=== PATIENT | male | born 1960 | race Two or more races ===

== ENCOUNTER 2024-07-19 10:13 | Emergency (ER) | payer MEDICAID, SELFPAY ==
[2024-07-19 10:15] VITALS: BMI 27.4
[2024-07-19 10:51] VITALS: BP 163/89; PULSE 98; RESP 19; TEMP 37.1; O2SAT 98
--- NOTE | 2024-07-19 10:57 | PD.EDRME ---
Rapid Medical Screening Exam RME Arrival date/time: 07/19/24 10:13 63-year-old male presents to the emergency department with complaints of abdominal pain recent abdominal surgery has colostomy bag. I have greeted and performed a focused initial assessment of this patient. Initial appropriate labs ordered at this time. A comprehensive ED assessment and evaluation of the patient and analysis of all test and completion of medical decision making process will be conducted by additional ED provider. Chief Complaint: Abdominal Pain Time Seen by Provider: 07/19/24 10:35 Vital signs: Vital Signs Temperature 98.7 F 07/19/24 10:51 Pulse Rate 98 07/19/24 10:51 Respiratory Rate 19 07/19/24 10:51 Blood Pressure 163/89 H 07/19/24 10:51 Pulse Oximetry (%) 98 07/19/24 10:51 Oxygen Delivery Method Room Air 07/19/24 10:51
--- NOTE | 2024-07-19 11:39 | PD.EDABDPN ---
ED Abdominal Pain RME/HPI General Chief Complaint: Abdominal Pain Stated complaint: ABD PAIN SINCE YESTERDAY, HX OF ABD SX Time seen by provider: 07/19/24 10:35 Arrival date/time: 07/19/24 10:13 This is a 63-year-old male that comes in with complaints of abdominal pain. Patient was seen here 04/17/24 for a nonbleeding external hemorrhoid. patient's patient states that he was then referred to a surgeon. Patient is a very poor historian. Patient states that he was at [facility] and was there for almost a month per patient. Patient has a colostomy and continues to have altagracia in place. Per patient they have been there for over 2 months. Patient also has a PICC line in place. Per patient he supposed to be on chemotherapy. Received some paperwork from [facility] it appears that patient had a large bowel obstruction and had rectal bleeding. Patient had a exploratory ex lap with a liver biopsy. Patient was diagnosed with colon cancer. RME / HPI RME / HPI narrative: 07/19/24 10:13 63-year-old male presents to the emergency department with complaints of abdominal pain recent abdominal surgery has colostomy bag. I have greeted and performed a focused initial assessment of this patient. Initial appropriate labs ordered at this time. A comprehensive ED assessment and evaluation of the patient and analysis of all test and completion of medical decision making process will be conducted by additional ED provider. Related Data Allergies Allergy/AdvReac Type Severity Reaction Status Date / Time No Known Allergies Allergy Verified 07/19/24 10:16 Review of Systems Review of Systems Systems Reviewed: All systems reviewed, normal except as documented Past Medical History Social History SMOKING STATUS: Current every day smoker ED Exam General General appearance: Present alert and in no apparent distress Head Head exam: Present atraumatic Eye Eye exam: Present normal appearance, PERRL and EOMI ENT ENT exam: Present normal exam, normal oropharynx and mucous membranes moist Neck Neck exam: Present normal inspection, full ROM and trachea midline Chest Chest inspection: Present normal inspection and symmetric chest wall rise Respiratory Respiratory exam: Present normal lung sounds bilaterally Cardiovascular Cardiovascular exam: Present regular rate, normal rhythm and normal heart sounds Abdominal Exam Abdominal exam: Present soft and other (colostomy on the right side of abdomen, midline altagracia in place in abdomen ) Extremities Exam Extremities exam: Present normal inspection and full ROM Back Exam Back exam: Present normal inspection and full ROM Neurological Exam Neurological exam: Present alert, oriented X3 and CN II-XII intact Psychiatric Psychiatric exam: Present normal affect and normal mood Skin Skin exam: Present warm, dry, intact and normal color Course Quality Measures none Orders Category Date Time Status CT Screening NOW Care 07/19/24 13:[address] abdomen pelvis w con Stat Exams 07/19/24 13:25 Completed Blood Culture (Lab) Stat Lab 07/19/24 11:50 Completed CBC Stat Lab 07/19/24 11:50 Completed Comprehensive Metabolic Panel Stat Lab 07/19/24 11:50 Completed Drug Screen,Urine Stat Lab 07/19/24 12:40 Completed Lactate (Lactic Acid) Stat Lab 07/19/24 12:35 Completed Lipase Stat Lab 07/19/24 11:50 Completed Urinalysis, C/S if Indicated Stat Lab 07/19/24 12:40 Completed Urine Culture Stat Lab 07/19/24 12:40 Completed HYDROcodone*/APAP 5/325 [[place] 5/325] Med 07/19/24 16:48 Discontinued 1 tab PO X1 ONE cefTRIAXone [Rocephin] 1,000 mg Med 07/19/24 16:49 Discontinued Lidocaine 1% 20 ml [Xylocaine 1% 20 ML] 2.1 ml IM X1 Vital Signs Vital signs: Vital Signs Temperature 98.7 F 07/19/24 10:51 Pulse Rate 98 07/19/24 10:51 Respiratory Rate 19 07/19/24 10:51 Blood Pressure 163/89 H 07/19/24 10:51 Pulse Oximetry (%) 98 07/19/24 10:51 Oxygen Delivery Method Room Air 07/19/24 10:51 Abdominal Pain MDM MDM Narrative MDM Narrative:: CT abdomen and pelvis: Findings: There are numerous liver lesions Gallbladder wall is thickened with tiny gallstones Spleen not enlarged No pancreatic or adrenal mass Periaortic pericaval lymphadenopathy No hydronephrosis Common iliac and external iliac lymphadenopathy Large rectal mass which is extending anteriorly invading the prostate Thickened gallbladder wall Prominent osteopenia Bilateral expansile rib lesions Bone destruction involving the left first and second sacral segments for instance axial image 236 Impression: Numerous liver lesions Recommend hepatobiliary sonography to exclude acute cholecystitis Extensive abdominal and pelvic lymphadenopathy Large rectal presumed tumor mass Osseous metastatic disease Labs reviewed. WBC 13.9, lfts elevated. Pt had wbc in urine. Pt treated with rocephin. Altagracia we removed. Spoke to patient at length. Patient is to follow up with his primary provider tomorrow. Come back to ED if symptoms change or worsen. Patient data External records reviewed:: [facility] previous records Clinical information provided by:: patient Social determinants that could affect healthcare access:: housing Patient has the following chronic illnesses:: likely colon cancer How is presenting disease/condition affected by chronic disease/condition?: exacerbated by Evaluation data The following diagnostics were reviewed and interpreted by me:: lab results and radiology exam(s) Lab and/or radiology exams considered but not ordered:: none Interpretation Summary: see note Medications / Prescriptions Medications or Prescriptions considered but not ordered:: none Medication administrations:: Medication Administration History Discontinued Medications Hydrocodone Bitart/Acetaminophen (Hydrocodone/[place] 5/325 Tablet) 1 tab PO X1 ONE Stop: 07/19/24 16:49 Last Admin: 07/19/24 17:13 Dose: 1 tab Documented By: CARMEL Ceftriaxone Sodium 1,000 mg/ (Lidocaine HCl 2.1 ml) 0 mg IM X1 ONE Stop: 07/19/24 16:50 Last Admin: 07/19/24 17:14 Dose: 1,000 mg Documented By: CARMEL see mar Consultations Consultation(s) initiated? (list below): No Diagnosis Differential diagnosis abdominal pain: abdominal pain, acute appendicitis, calculus of kidney, pancreatitis and small bowel obstruction Most likely diagnosis given after review of the tests above:: colon cancer with mets Admission Indicated Admission indicated?: not indicated Admission Request Was there a request for admission?: No Disposition Plan Disposition Plan: Discharge Discharge Attestation Discharge Attestation: The patient and all family members were given an opportunity to ask questions and understood the discharge instructions. Discharge instructions specifically effects, indications for sooner follow up or return to the emergency department, and the expected course of current diagnosis. Patient condition: Stable Discharge Plan Plan Patient Disposition: HOME (Self Care) Patient condition on transfer: Stable Prescriptions/Referrals Referrals: Ifeanyi Lucia MD [Primary Care Provider] - In 1 week Problem List Clinical Impression: Colon cancer, Acute UTI, Metastases to the liver Patient/Caregiver Discharge Instructions Discharge Activity: activity as tolerated Education Materials: Urinary Tract Infections in Men, Colorectal Cancer Additional Instructions: [facility] and [facility] Take medications as prescribed. Come back to the emergency room if symptoms change or worsen. Print Language: Kiswahili Stand Alone Forms: Gabriela Award Info., Patient Portal Info Letter PA/RN CARDIOVASCULAR Supervising Physician PA/RN CARDIOVASCULAR Supervising Physician: ria
[2024-07-19 12:40] LABS: Lactate (Lactic Acid) 1.9 mMol/L (0.4-2.0)
[2024-07-19 12:43] LABS: Basophils # (Auto) 0.1 Thou/mm3 (0.0-0.2); Basophils % (Auto) 0 % (0-2.5); Eosinophils # (Auto) 0.1 Thou/mm3 (0.0-0.5); Eosinophils % (Auto) 1 % (0-10); Hematocrit 35.7 % (41.0-53.0); Hemoglobin 11.3 g/dL (13.5-16.0); Immature Granulocytes % (Auto) 1 % (0-0); Immature Granulocytes Auto 0.09 Thou/mm3 (0.00-0.00); Lymphocytes # (Auto) 1.8 Thou/mm3 (1.0-4.8); Lymphocytes % (Auto) 13 % (10-50); Mean Corpuscular HGB Conc 31.7 g/dl (31.0-37.0); Mean Corpuscular Hemoglobin 28.3 pg (25.0-35.0); Mean Corpuscular Volume 90 fL (80-100); Monocytes # (Auto) 1.3 Thou/mm3 (0.0-0.8); Monocytes % (Auto) 9 % (0-12); Neutrophils # (Auto) 10.5 Thou/mm3 (1.8-7.7); Neutrophils % (Auto) 76 % (37-80); Nucleated Red Blood Cell % 0 /100 WBC (0); Platelet Count 381 Thou/mm3 (140-440); RDW Standard Deviation 46.3 fL (35.1-43.9); Red Blood Count 3.99 Miln/mm3 (4.50-5.90); White Blood Count 13.9 Thou/mm3 (3.8-10.6)
[2024-07-19 13:10] LABS: Alanine Aminotransferase 81 U/L (10-49); Albumin, Serum 4.3 gm/dL (3.4-4.8); Albumin/Globulin Ratio 1.5 (1.2-2.2); Alkaline Phosphatase 980 U/L (46-116); Anion Gap 10 (7-16); Aspartate Amino Transferase 59 U/L (0-34); BUN/Creatinine Ratio 18 Ratio (12-20); Bilirubin,Total 0.4 mg/dL (0.3-1.2); Blood Urea Nitrogen 14 mg/dL (9-23); Calcium 9.5 mg/dL (8.3-10.6); Calcium (Corrected) 9.5 mg/dL (8.5-10.1); Chloride 102 mMol/L (98-107); Creatinine (Component) 0.8 mg/dL (0.6-1.3); Estimated Creatinine Clearance 93.6 mL/min (>60); Globulin 2.8 gm/dL (2.3-3.5); Glucose 112 mg/dL (74-106); Lipase 33 U/L (12-53); Osmolality,Calculated 277 (275-295); Potassium 3.9 mMol/L (3.4-5.1); Sodium 138 mMol/L (136-145); Total Protein 7.1 gm/dL (5.7-8.2); eGFR > 60 See Note
--- NOTE | 2024-07-19 13:25 | XR_ITS ---
Examination: CT abdomen with intravenous contrast CT pelvis with intravenous contrast 2-D coronal reconstructions 2-D sagittal reconstructions Date and time of exam:July 19, 2024 1500 hrs. Indications: Generalized abdominal pain today multiple abdominal surgeries. CTDI: vol (mGy) 13.9 DLP: (mGycm) 587 Technique: Multiple axial sections of the abdomen and pelvis have been obtained. 64 slice high-resolution scanner used. 3 mm axial sections have been obtained, post intravenous injection 60 cc [id number] 2-D sagittal coronal reconstructions Nodose protocols, automated exposure control, adjustment MA KV according to patient size Findings: There are numerous liver lesions Gallbladder wall is thickened with tiny gallstones Spleen not enlarged No pancreatic or adrenal mass Periaortic pericaval lymphadenopathy No hydronephrosis Common iliac and external iliac lymphadenopathy Large rectal mass which is extending anteriorly invading the prostate Thickened gallbladder wall Prominent osteopenia Bilateral expansile rib lesions Bone destruction involving the left first and second sacral segments for instance axial image 236 Impression: Numerous liver lesions Recommend hepatobiliary sonography to exclude acute cholecystitis Extensive abdominal and pelvic lymphadenopathy Large rectal presumed tumor mass Osseous metastatic disease
[2024-07-19 13:38] LABS: Collection Type, Urine Pedi-Bag; RBC,Urine 0 /hpf (0-3)
[2024-07-19 13:57] VITALS: BP 137/80; PULSE 88; RESP 16; O2SAT 97
[2024-07-19 14:09] LABS: Amorphous Crystals,Urine Present (Absent); Bacteria,Urine 3+; Bilirubin,Urine Negative (Negative); Blood,Urine Negative (Negative); Clarity,Urine Turbid (Clear/Hazy); Color,Urine Yellow (Lt Yel-Yel); Culture Indicated,Urine Yes; Glucose, Urine Negative (Negative); Ketones,Urine Negative (Negative); Leukocyte Esterase,Urine Positive (Negative); Nitrite,Urine Negative (Negative); Protein,Urine 1+ (Neg - Trace); Specific Gravity,Urine 1.027 (1.001-1.035); Squamous Epithelial Cell,Urine 1 /hpf (0-5); Urobilinogen,Urine Negative mg/dL (0.0-1.0); WBC,Urine 413 /hpf (0-5)
[2024-07-19 14:43] LABS: Amphetamine/Methamp Scrn,U Negative (Negative); Barbiturate Screen,Urine Negative (Negative); Benzodiazepines Screen,Urine Negative (Negative); Benzoylecgonine Screen, Ur Negative (Negative); Fentanyl Screen,Urine Negative (Negative); Opiate Screen,Urine Negative (Negative); THC Screen,Urine Positive (Negative)
--- NOTE | 2024-07-19 15:22 | PC.NURSE ---
[facility] WAS CALLED AT 1420 AND INTERIOR DESIGN ASSISTANT VAHID WAS SPOKEN TO ABOUT REQUESTING MEDICAL RECORDS FOR THE PATIENTS MOST RECENT VISIT. SHE PROVIDED A FAX NUMBER BUT INFORMED ME SHE DID NOT HAVE ACCESS TO PRINT/FAX MEDICAL RECOIRDS AND WAS UNSURE IF ADDITION MEDICAL RECORDS PERSONNEL WOULD BE IN TODAY. I UPDATED MAC ALFRED AND SENT THE MEDICAL RELEASE TO THE PROVIDED FAX NUMBER @[phone]
[2024-07-19 15:24] VITALS: BP 162/93; PULSE 91; RESP 18; TEMP 37.1; O2SAT 95
[2024-07-19] MEDS: HYDROcodone/APAP 5/325 TABLET 1 TAB PO (17:13)
[2024-07-19] MEDS: cefTRIAXone 1,000 MG, LIDOCAINE 1% 20 ML 2.1 ML IM (17:14)
== END 2024-07-19 18:30 | disposition home or self-care (01) ==
PROVIDERS: Nurse Practitioner Family; Emergency Provider Emergency Medicine; PCP Family Medicine
DX: N39.0 Urinary tract infection, site not specified (principal); C18.9 Malignant neoplasm of colon, unspecified; C78.7 Secondary malignant neoplasm of liver and intrahepatic bile duct; R59.0 Localized enlarged lymph nodes; C79.51 Secondary malignant neoplasm of bone
CPT/HCPCS: 36415; 74177; 80053; 80307; 81001; 83605; 83690; 85025; 87040; 87077; 87086; 87186; 96372; 99285; A4649; J0696; J3490; Q9967; A9270

== ENCOUNTER 2024-09-04 10:29 | Emergency (ER) | payer MEDICAID, SELFPAY ==
[2024-09-04 10:42] VITALS: BP 155/91; PULSE 106; RESP 20; TEMP 36.7; O2SAT 97
[2024-09-04 10:44] VITALS: BMI 28.2
--- NOTE | 2024-09-04 10:46 | PC.NURSE ---
PT'S FAMILY HELD UP PICC LINE (THAT HAD BEEN PULLED OUT 2 WEEKS AGO) AND ASKED PROVIDER WHAT TO DO ? PRIORITY CHANGED TO 3
[2024-09-04 10:48] VITALS: BP 152/90; PULSE 109; RESP 20; TEMP 36.6; O2SAT 96
--- NOTE | 2024-09-04 11:13 | XR_ITS ---
Examination: CT chest with intravenous contrast CT abdomen with intravenous contrast CT pelvis with intravenous contrast 2-D coronal and sagittal reconstructions Time of exam: September 04, 2024 1308 hrs. Indications: Left rib pain left thoracic mass history, diagnosis malignant neoplasm of the colon, liver lesions large rectal tumor osseous metastatic disease on CT abdomen and pelvis July 19, 2024 CTDI: vol (mGy) : 8.17 DLP: (mGycm): 621 Technique: Multiple axial images of the chest, abdomen and pelvis with intravenous contrast, 3.0 mm slice thickness. Images obtained post intravenous injection Isovue 370 60 cc. 2-D sagittal and coronal reconstructions. Low dose protocols were performed. One or more of the following dose reduction techniques were used; automated exposure control, adjustment of the mA and/or KV according to patient size, use of iterative reconstruction technique. Findings: No thoracic aortic aneurysm dilatation No pulmonary artery emboli No peritracheal or tracheobronchial lymphadenopathy Bilateral large soft tissue metastatic masses destroying ribs including 6 x 4 cm soft tissue mass destroying the posterior lateral right sixth rib as well as paraspinal soft tissue mass destroying the left seventh rib measuring at least 6.4 x 4.5 cm This mass is extending into the spinal canal impinging upon the thecal sac, axial image 76 There also is a 4 x 3.1 cm soft tissue mass destroying the left ninth rib posterior laterally Multiple subcentimeter metastatic pulmonary nodules Again noted numerous hepatic metastases throughout both right and left lobes of the liver without major change compared to the study one month ago Malignant ascites Spleen is not enlarged No pancreatic mass Prominent pericaval periaortic and pelvic lymph nodes No bowel obstruction Colonic diverticulosis Again depicted large rectal tumor mass measuring 5.6 cm in transverse dimension Widespread osseous metastatic disease involving vertebral bodies, sacral segments iliac bones including anterior left pelvic rami Impression: Large soft tissue metastatic masses destroying bilateral ribs as above The largest mass destroying the left seventh rib 6.4 x 4.5 cm extends into the spinal canal impinging upon the thecal sac, recommend MRI thoracic spine follow-up postcontrast to assess for cord compression Numerous hepatic metastases Malignant ascites Extensive abdominal and pelvic lymphadenopathy Widespread osseous metastatic disease Again noted large rectal tumor mass
--- NOTE | 2024-09-04 11:13 | EKG_ITS ---
[facility] Test Date: 2024-09-04 Pat Name: LORRIE CAPONE Department: Room: - Gender: Male [employer]: : 1960 Requested By: Betty Gardner Order Number: [id number] Reading MD: Betty Gardner Measurements Intervals [place] Rate: 101 P: 50 [place]: 165 QRS: -4 QRSD: 77 T: 55 QT: 334 QTc: 434 Interpretive Statements SINUS TACHYCARDIA LOW QRS VOLTAGE IN PRECORDIAL LEADS [QRS DEFLECTION < 1.0 mV IN CHEST LEADS] SEPTAL MYOCARDIAL INFARCTION , PROBABLY OLD [40+ ms Q WAVE IN V1/V2] No previous ECG available for comparison /store/S0/[id number].pdf
--- NOTE | 2024-09-04 11:16 | PD.EDADULT ---
ED General RME/HPI General Chief complaint: General Adult/Misc Complain Stated complaint: LEFT SIDE RIB PAIN FOR 2 WEEKS Time Seen by Provider: 09/04/24 10:31 Arrival date/time: 09/04/24 10:29 RME / HPI RME / HPI narrative: DR. ANDERSON MAIN ED EVALUATION: 63-year-old male patient with a history of colon cancer with bowel resection and colostomy in [place] presenting today with left-sided rib pain. Girlfriend at bedside points out to masses on his left posterior ribs. Patient states he was previously staying in [place] for work but now is back home in [place] trying to establish care with the cancer center. He previously had a PICC line in place that came out approximately 2 weeks ago. He states he has not yet followed up with the cancer center here due to issues with his [facility]. Related Data Previous Rx's ?Medication ?Instructions ?Recorded bisacodyl 5 mg tablet,delayed 5 mg PO QDAY PRN constipation #30 09/04/24 release (Dulcolax (bisacodyl)) tabs hydrocodone 10 mg-acetaminophen 1 tab PO Q6H PRN pain #20 tabs 09/04/24 325 mg tablet ondansetron 4 mg disintegrating 4 mg PO Q8H PRN nausea and 09/04/24 tablet vomiting #20 tabs Allergies Allergy/AdvReac Type Severity Reaction Status Date / Time No Known Allergies Allergy Verified 09/04/24 10:32 Review of Systems Review of Systems Systems Reviewed: All systems reviewed, normal except as documented Narrative Review of Systems: GEN: No fever, no chills, no weight loss EYES: No discharge, no visual changes, no pain HEENT: No ear pain, no congestion, no sore throat PULM: No shortness of breath, no cough, no congestion CV: No chest pain, no dyspnea on exertion, no palpitations GI: No nausea, no vomiting, no diarrhea, no pain, no constipation : No frequency, no urgency and no dysuria MUSC/SKEL: + left-sided rib pain, no back pain SKIN: No rash PSYCH: No hallucinations, no depression HEME/LYMPH: No easy bleeding or bruising tendencies NEURO: No weakness, no headache Past Medical History Past Medical History CARDIAC: Positive Hypertension; Negative Cardiac Disorders or Congestive Heart Failure RESPIRATORY: Negative Chronic Obstructive Pulmonary Disease (COPD) or Asthma GASTROINTESTINAL: Positive Gastrointestinal Bleed and Obstructive Bowel (ostomy) GENITOURINARY: Negative Renal Disease ENDOCRINE: Negative Diabetes Mellitus Type 1 or Diabetes Mellitus Type 2 HEMATOLOGIC: Negative Sickle Cell Disease OTHER HISTORY: Positive Chemotherapy and Cancer (colon); Negative Autoimmune Disease Family History FAMILY HISTORY: Negative Family Psychiatric Problems, Family Respiratory Disorders, Family Cardiac Disorders, Family Gastrointestinal Problems, Family Cancer, Family Surgery or Family Anesthesia Reaction Surgical History SURGICAL: Positive Abdominal Surgery and Bowel Surgery (right colostomy) Social History SMOKING STATUS: Never smoker SUBSTANCE USE: does not use ALCOHOL: Never ED Exam Narrative Physical exam: GENERAL APPEARANCE: alert and oriented x 4, well-developed, well-nourished, no acute distress VITALS: All vitals were reviewed and the pulse ox is 93% on room air, which is normal according to my interpretation. HEENT: Normocephalic, atraumatic; pupils equal, round, reactive to light; EOMI; mucous membranes pink, moist; oropharynx clear NECK: Supple LUNGS: CTABL; no wheezes, no rales, no rhonchi CHEST: masses on his left posterior ribs with some tenderness on palpation HEART: Regular rate, regular rhythm; normal S1, S2; no murmurs ABDOMEN: non distended; normal BS; soft, no tenderness, no guarding, no rebound; no masses, no organomegaly, no hernia BACK: no CVA tenderness EXTREMITIES: atraumatic; no edema NEUROLOGIC: awake; alert and oriented x4; cranial nerves II-XII grossly intact; no focal sensory or motor deficits PSYCHIATRIC: appropriate mood and affect SKIN: warm, dry, normal color; no rashes Course Quality Measures none Orders Category Date Time Status CT Screening NOW Care 09/04/24 11:14 Completed Bladder Changer NOW Care 09/04/24 11:13 Completed EKG (ED ONLY) *Do not use* NOW Care 09/04/24 11:13 Completed Referral Hospice Stat Cons 09/04/24 16:[address] chest abdomen pelvis w Stat Exams 09/04/24 11:13 Completed EKG (ED Only) Stat Exams 09/04/24 11:13 Draft B-Type Natriuretic Peptide Stat Lab 09/04/24 11:34 Completed CBC Stat Lab 09/04/24 11:34 Completed Comprehensive Metabolic Panel Stat Lab 09/04/24 11:34 Completed Lipase Stat Lab 09/04/24 11:34 Completed Magnesium Stat Lab 09/04/24 11:34 Completed Partial Thromboplastin Time Stat Lab 09/04/24 11:34 Completed Prothrombin Time with INR Stat Lab 09/04/24 11:34 Completed Troponin I Stat Lab 09/04/24 11:34 Completed Morphine Inj Med 09/04/24 11:15 Discontinued 5 mg IVP X1 ONE Morphine Inj Med 09/04/24 13:55 Discontinued 5 mg IVP X1 ONE Ondansetron Inj [Zofran Inj] Med 09/04/24 11:15 Discontinued 4 mg IV X1 ONE Vital Signs Vital signs: Vital Signs Temperature 98.1 F 09/04/24 10:42 Pulse Rate 106 H 09/04/24 10:42 Respiratory Rate 20 09/04/24 10:42 Blood Pressure 155/91 H 09/04/24 10:42 Pulse Oximetry (%) 97 09/04/24 10:42 Oxygen Delivery Method Room Air 09/04/24 10:42 [facility] Patient data External records reviewed:: [facility] previous records (Reviewed last ED visit dated 07/19/24, discharged with the following: Acute UTI.) Clinical information provided by:: patient and spouse (Girlfriend) Social determinants that could affect healthcare access:: none Patient has the following chronic illnesses:: Colon cancer with bowel resection and colostomy in [place]. How is presenting disease/condition affected by chronic disease/condition?: exacerbated by Evaluation data The following diagnostics were reviewed and interpreted by me:: lab results, radiology exam(s) and EKG tracing(s) (EKG at 1144 hours: sinus tachycardia, rate 101, low voltage in precordial leads,) Lab and/or radiology exams considered but not ordered:: none Interpretation Summary: Procedure(s): CT chest abdomen pelvis w Accession Number(s): [id number] cc: Yogi Minor MD; Betty Anderson MD; Alexi Everett MD~ Examination: CT chest with intravenous contrast CT abdomen with intravenous contrast CT pelvis with intravenous contrast 2-D coronal and sagittal reconstructions Time of exam: September 04, 2024 1308 hrs. Indications: Left rib pain left thoracic mass history, diagnosis malignant neoplasm of the colon, liver lesions large rectal tumor osseous metastatic disease on CT abdomen and pelvis July 19, 2024 CTDI: vol (mGy) : 8.17 DLP: (mGycm): 621 Technique: Multiple axial images of the chest, abdomen and pelvis with intravenous contrast, 3.0 mm slice thickness. Images obtained post intravenous injection Isovue 370 60 cc. 2-D sagittal and coronal reconstructions. Low dose protocols were performed. One or more of the following dose reduction techniques were used; automated exposure control, adjustment of the mA and/or KV according to patient size, use of iterative reconstruction technique. Findings: No thoracic aortic aneurysm dilatation No pulmonary artery emboli No peritracheal or tracheobronchial lymphadenopathy Bilateral large soft tissue metastatic masses destroying ribs including 6 x 4 cm soft tissue mass destroying the posterior lateral right sixth rib as well as paraspinal soft tissue mass destroying the left seventh rib measuring at least 6.4 x 4.5 cm This mass is extending into the spinal canal impinging upon the thecal sac, axial image 76 There also is a 4 x 3.1 cm soft tissue mass destroying the left ninth rib posterior laterally Multiple subcentimeter metastatic pulmonary nodules Again noted numerous hepatic metastases throughout both right and left lobes of the liver without major change compared to the study one month ago Malignant ascites Spleen is not enlarged No pancreatic mass Prominent pericaval periaortic and pelvic lymph nodes No bowel obstruction Colonic diverticulosis Again depicted large rectal tumor mass measuring 5.6 cm in transverse dimension Widespread osseous metastatic disease involving vertebral bodies, sacral segments iliac bones including anterior left pelvic rami Impression: Large soft tissue metastatic masses destroying bilateral ribs as above The largest mass destroying the left seventh rib 6.4 x 4.5 cm extends into the spinal canal impinging upon the thecal sac, recommend MRI thoracic spine follow-up postcontrast to assess for cord compression Numerous hepatic metastases Malignant ascites Extensive abdominal and pelvic lymphadenopathy Widespread osseous metastatic disease Again noted large rectal tumor mass Dictated By: Yogi Minor MD Medications Medications considered but not ordered:: none Medication administrations:: Medication Administration History Discontinued Medications Morphine Sulfate (Morphine Sulf Inj 10 Mg/Ml Vial) 5 mg IVP X1 ONE Stop: 09/04/24 11:16 Last Admin: 09/04/24 12:09 Dose: 5 mg Documented By: HARINDER Morphine Sulfate (Morphine Sulf Inj 10 Mg/Ml Vial) 5 mg IVP X1 ONE Stop: 09/04/24 13:56 Last Admin: 09/04/24 14:21 Dose: 5 mg Documented By: HARINDER Ondansetron HCl (Ondansetron Inj 2 Mg/Ml Inj 2 Ml) 4 mg IV X1 ONE Stop: 09/04/24 11:16 Last Admin: 09/04/24 12:08 Dose: 4 mg Documented By: HARINDER see above Consultations Consultation(s) initiated? (list below): No Diagnosis Differential Diagnosis ED Complaint MDM: muscle strain, costochondritis, fractured rib, cancer Most likely diagnosis given after review of the tests above:: Metastatic cancer to bone Metastatic cancer to liver Colon cancer Admission Indicated Admission indicated?: not indicated Explain why admission is indicated or not indicated:: Patient has no emergent abnormalities on his studies and can be managed on an outpatient basis. Admission Request Was there a request for admission?: No Disposition Plan Disposition Plan: Discharge Discharge Attestation Discharge Attestation: The patient and all family members were given an opportunity to ask questions and understood the discharge instructions. Discharge instructions specifically effects, indications for sooner follow up or return to the emergency department, and the expected course of current diagnosis. Patient condition: Stable Medical Decision Making Differential Diagnosis Differential Diagnosis: muscle strain, costochondritis, fractured rib, cancer Lab Data 09/04/24 11:34 09/04/24 11:34 Labs: Lab Results 09/04/24 Range/Units 11:34 WBC 15.4 H (3.8-10.6) Thou/mm3 RBC 4.19 L (4.50-5.90) Miln/mm3 Hgb 12.1 L (13.5-16.0) g/dL Hct 37.5 L (41.0-53.0) % MCV 90 (80-100) fL MCH 28.9 (25.0-35.0) pg MCHC 32.3 (31.0-37.0) g/dl RDW Std Deviation 64.5 H (35.1-43.9) fL Plt Count 400 (140-440) Thou/mm3 Neut % (Auto) 85 H (37-80) % Lymph % (Auto) 8 L (10-50) % [place]con % (Auto) 6 (0-12) % Eos % (Auto) 0 (0-10) % Baso % (Auto) 0 (0-2.5) % Neut # (Auto) 13.1 H (1.8-7.7) Thou/mm3 Lymph # (Auto) 1.2 (1.0-4.8) Thou/mm3 [place] # (Auto) 0.9 H (0.0-0.8) Thou/mm3 Eos # (Auto) 0.1 (0.0-0.5) Thou/mm3 Baso # (Auto) 0.0 (0.0-0.2) Thou/mm3 Immature Gran # (Auto) 0.18 H (0.00-0.00) Thou/mm3 Absolute Nucleated RBC 0.00 (0.00-0.00) Thou/mm3 Immature Gran % 1 H (0-0) % Nucleated RBC % 0 (0) /100 WBC PT 11.6 (9.0-12.2) Seconds INR 1.1 (0.9-1.3) APTT 27.8 (22.0-36.0) Seconds Sodium 134 L (136-145) mMol/L Potassium 4.0 (3.4-5.1) mMol/L Chloride 100 (98-107) mMol/L Carbon Dioxide 22.8 (20.0-31.0) mMol/L Anion Gap 11 (7-16) BUN 18 (9-23) mg/dL Creatinine 0.6 (0.6-1.3) mg/dL Estim Creat Clear Calc 126.4 (>60) mL/min eGFR > 60 (60 - ) See Note BUN/Creatinine Ratio 30 H (12-20) Ratio Glucose 85 (74-106) mg/dL Calculated Osmolality 269 L (275-295) Calcium 10.2 (8.3-10.6) mg/dL Corrected Calcium 10.2 H (8.5-10.1) mg/dL Magnesium 1.9 (1.6-2.6) mg/dL Total Bilirubin 2.3 H (0.3-1.2) mg/dL AST 128 H (0-34) U/L ALT 78 H (10-49) U/L Alkaline Phosphatase 2070 H (46-116) U/L Troponin I < 0.020 (0.0-0.045) ng/mL B-Natriuretic Peptide 22 (0-100) pg/mL Total Protein 7.1 (5.7-8.2) gm/dL Albumin 4.1 (3.4-4.8) gm/dL Globulin 3.0 (2.3-3.5) gm/dL Albumin/Globulin Ratio 1.4 (1.2-2.2) Lipase 29 (12-53) U/L Discharge Plan Plan Patient Disposition: HOME (Self Care) Prescriptions/Referrals Prescriptions/Med Rec: New ondansetron 4 mg tablet,disintegrating 4 mg PO Q8H PRN (Reason: nausea and vomiting) Qty: 20 0RF hydrocodone-acetaminophen 10-325 mg tablet 1 tab PO Q6H MDD 4 PRN (Reason: pain) Qty: 20 0RF bisacodyl [Dulcolax (bisacodyl)] 5 mg tablet,delayed release (DR/EC) 5 mg PO QDAY PRN (Reason: constipation) Qty: 30 0RF Referrals: Alexi Everett MD [Primary Care Provider] - In 1 week Problem List Clinical Impression: Metastatic cancer to bone, Metastatic cancer to liver, Colon cancer Patient/Caregiver Discharge Instructions Education Materials: Resources for People with Cancer, Colorectal Cancer Print Language: Turkish Stand Alone Forms: Gabriela Award Info., Patient Portal Info Letter
[2024-09-04 11:56] LABS: Basophils % (Auto) 0 % (0-2.5); Eosinophils # (Auto) 0.1 Thou/mm3 (0.0-0.5); Eosinophils % (Auto) 0 % (0-10); Hematocrit 37.5 % (41.0-53.0); Hemoglobin 12.1 g/dL (13.5-16.0); Immature Granulocytes % (Auto) 1 % (0-0); Immature Granulocytes Auto 0.18 Thou/mm3 (0.00-0.00); Lymphocytes # (Auto) 1.2 Thou/mm3 (1.0-4.8); Lymphocytes % (Auto) 8 % (10-50); Mean Corpuscular HGB Conc 32.3 g/dl (31.0-37.0); Mean Corpuscular Hemoglobin 28.9 pg (25.0-35.0); Mean Corpuscular Volume 90 fL (80-100); Monocytes # (Auto) 0.9 Thou/mm3 (0.0-0.8); Monocytes % (Auto) 6 % (0-12); Neutrophils # (Auto) 13.1 Thou/mm3 (1.8-7.7); Neutrophils % (Auto) 85 % (37-80); Nucleated Red Blood Cell % 0 /100 WBC (0); Platelet Count 400 Thou/mm3 (140-440); RDW Standard Deviation 64.5 fL (35.1-43.9); Red Blood Count 4.19 Miln/mm3 (4.50-5.90); White Blood Count 15.4 Thou/mm3 (3.8-10.6)
[2024-09-04] MEDS: ONDANSETRON INJ 2 MG/ML INJ 2 ML 4 MG IV (12:08)
[2024-09-04] MEDS: MORPHINE SULF INJ 10 MG/ML VIAL 5 MG IVP ×2 (12:09→14:21)
[2024-09-04 12:15] VITALS: PULSE 104
[2024-09-04 12:18] LABS: B-Type Natriuretic Peptide 22 pg/mL (0-100)
[2024-09-04 12:30] LABS: Alanine Aminotransferase 78 U/L (10-49); Albumin, Serum 4.1 gm/dL (3.4-4.8); Albumin/Globulin Ratio 1.4 (1.2-2.2); Alkaline Phosphatase 2070 U/L (46-116); Anion Gap 11 (7-16); Aspartate Amino Transferase 128 U/L (0-34); BUN/Creatinine Ratio 30 Ratio (12-20); Bilirubin,Total 2.3 mg/dL (0.3-1.2); Blood Urea Nitrogen 18 mg/dL (9-23); Calcium 10.2 mg/dL (8.3-10.6); Calcium (Corrected) 10.2 mg/dL (8.5-10.1); Carbon Dioxide 22.8 mMol/L (20.0-31.0); Chloride 100 mMol/L (98-107); Creatinine (Component) 0.6 mg/dL (0.6-1.3); Estimated Creatinine Clearance 126.4 mL/min (>60); Glucose 85 mg/dL (74-106); Lipase 29 U/L (12-53); Magnesium 1.9 mg/dL (1.6-2.6); Osmolality,Calculated 269 (275-295); Sodium 134 mMol/L (136-145); Total Protein 7.1 gm/dL (5.7-8.2); Troponin I < 0.020 ng/mL (0.0-0.045); eGFR > 60 See Note
[2024-09-04 12:42] VITALS: BP 157/105; PULSE 99; RESP 18; TEMP 36.4; O2SAT 93
[2024-09-04 13:00] LABS: INR 1.1 (0.9-1.3); Partial Thromboplastin Time 27.8 Seconds (22.0-36.0); Prothrombin Time 11.6 Seconds (9.0-12.2)
--- NOTE | 2024-09-04 17:03 | PC.CC ---
RAHEEL, was consulted by Dr. Anderson for Home Hospice services for the patient. Laura PICKERING made [id number] contact with patient. ASW introduced self, role, and reason for visit. Patient appeared alert and oriented to self, location, and situation. At bedside was patient's Mary Carmen Yoo who patient provided consent to remain in the room. Patient agreed to home hospice and would like [facility]. ASW sent referral to [facility] via [employer]. Mamie with [facility] made contact with [facility] and agreed to take the patient. Mamie spoke to patient's and patient to gather more information and provide information regrading their services.
--- NOTE | 2024-09-04 17:11 | PC.CC ---
Mamie with [facility] reports they will be starting services today and be delivering Oxygen, bedside commode, and hospital bed for the patient.
[2024-09-04 17:14] VITALS: BP 139/89; PULSE 87; RESP 20; TEMP 36.7; O2SAT 94
== END 2024-09-04 17:51 | disposition home or self-care (01) ==
PROVIDERS: Emergency Provider Emergency Medicine; PCP Family Medicine
DX: C19 Malignant neoplasm of rectosigmoid junction (principal); C78.7 Secondary malignant neoplasm of liver and intrahepatic bile duct; C79.51 Secondary malignant neoplasm of bone; Z93.3 Colostomy status
CPT/HCPCS: 36415; 71260; 74177; 80053; 83690; 83735; 83880; 84484; 85025; 85610; 85730; 93005; 96374; 96375; 96376; 99285; A4649; J2270; J2405; Q9967